=== PATIENT | male | born 1950 | race African-American/Black ===

== ENCOUNTER 2019-02-07 08:00 | Emergency (ER) | payer MEDICARE, MEDICAID ==
[~2019-02-07] VITALS: Ht 175.3 cm; Wt 86.0 kg
[2019-02-07] MEDS ORDERED: ONDANSETRON 4MG ODT PO ONE (08:45)
[2019-02-07] MEDS ORDERED: MORPHINE SULFATE 10 MG/ML CPJ IM ONE (08:45)
[2019-02-07] MEDS ORDERED: HYDROCODONE/ACETAMINOPHEN 5/325MG TABLET PO ONE (10:15)
[2019-02-07 10:50] VITALS: BP 174/79
== END 2019-02-07 11:06 | disposition home or self-care (01) ==
LOC: ER 08:00
DX: R51 Headache (principal); S32.019A Unspecified fracture of first lumbar vertebra, initial encounter for closed fracture; W01.0XXA Fall on same level from slipping, tripping and stumbling without subsequent striking against object, initial encounter; Y93.F1 Activity, caregiving, bathing; Y92.9 Unspecified place or not applicable; Z85.830 Personal history of malignant neoplasm of bone
CPT/HCPCS: 70450; 72131; 96372; 99284; J2270; Q0162